=== PATIENT | male | born 1955 | race Caucasian/White ===

== ENCOUNTER 2020-02-01 06:24 | Emergency (ER) | payer MEDICARE, BC ==
--- NOTE | 2020-02-01 07:26 | EDM.PDOC ---
ED HPI GENERAL MEDICAL PROBLEM - General Chief Complaint: Respiratory Problem Stated Complaint: COVID +/SOB/LOW O2 Time Seen by Provider: 02/01/20 07:16 - History of Present Illness INITIAL COMMENTS - FREE TEXT/NARRATIVE: 64-year-old male presents the emergency room with difficulty breathing chest pain and weakness. Patient states this started about 3 weeks ago. With the breathing difficulty and the cough really got worse over this last week he has some chest tightness associated with this. Patient currently is treated for hypertension Parkinson's disease and anxiety/depression. Early on the patient did have some nausea and vomiting. But this seemed to have gotten better. Now he complains mostly of just being weak and gets easily short of breath with any sort of activity. The patient was seen in the walk-in clinic on Saturday he had spots of pneumonia on his lungs and he was started on a Z-Rafa. He is not getting any better. His COVID test at that time did come up positive. The patient is currently taking a beta-juan alberto for his blood pressure 2 Parkinson's pills and Wellbutrin. He does not have a medicine list with him. - Related Data Allergies Allergy/AdvReac Type Severity Reaction Status Date / Time No Known Allergies Allergy Verified 02/01/20 06:34 Home Meds: Home Meds Carbidopa/Levodopa [Carbidopa-Levodopa 25-100 Tab] 1 each PO 6XDAY PRN 02/01/20 [History] Cefuroxime Axetil [Ceftin] 500 mg PO BID #18 tablet 02/01/20 [Rx] Metoprolol Succinate 50 mg PO DAILY 02/01/20 [History] Ondansetron [Ondansetron ODT] 1 tab PO Q6HR PRN 02/01/20 [History] dexAMETHasone [Dexamethasone] 4 mg PO BID #15 tablet 02/01/20 [Rx] traMADol [Ultram] 50 mg PO DAILY 02/01/20 [History] Past Medical History Cardiovascular History: Reports: Hypertension Neurological History: Reports: Parkinson's - Infectious Disease History Infectious Disease History: Reports: Novel Coronavirus Social & Family History - Tobacco Use Smoking Status *Q: Never Smoker ED ROS GENERAL - Review of Systems Review Of Systems: See Below Constitutional: Reports: Fever, Chills, Weakness, Fatigue HEENT: Reports: Rhinitis (Mild) Respiratory: Reports: Shortness of Breath, Pleuritic Chest Pain, Cough. Denies: Sputum Cardiovascular: Reports: Chest Pain, Dyspnea on Exertion. Denies: Lightheadedness, Palpitations Endocrine: Reports: No Symptoms GI/Abdominal: Reports: Nausea, Vomiting. Denies: Abdominal Pain, Constipation, Diarrhea : Reports: No Symptoms Musculoskeletal: Reports: No Symptoms Skin: Reports: No Symptoms Neurological: Reports: No Symptoms Psychiatric: Reports: No Symptoms Hematologic/Lymphatic: Reports: No Symptoms Immunologic: Reports: No Symptoms ED EXAM, GENERAL - Physical Exam Exam: See Below General Appearance: Other (The patient was hypoxic when he came in with an O2 saturation of 79%. He was started on 2 L and came up to the mid 90s and back and down to 1 L and he is still 93%. His pulse is come down into the mid 90s. We will start some fluids and watch this closely. It is unclear to me if the patient took his blood pressure medication but is blood pressure has also been somewhat elevated however it is coming down without intervention. His pulse has come down into the mid 90s) Eye Exam: Bilateral Eye: Normal Inspection Ears: Normal External Exam, Normal Canal, Hearing Grossly Normal, Normal TMs Nose: Normal Inspection, Normal Mucosa, No Blood Throat/Mouth: Normal Inspection, Normal Oropharynx, Normal Voice, No Airway Compromise Head: Atraumatic, Normocephalic Neck: Normal Inspection, Supple, Non-Tender, Full Range of Motion. No: Lymphadenopathy (L), Lymphadenopathy (R) Respiratory/Chest: No Respiratory Distress, Lungs Clear, Normal Breath Sounds Cardiovascular: Regular Rate, Rhythm, No Edema, No Murmur GI/Abdominal: Normal Bowel Sounds, Soft, Non-Tender Back Exam: Normal Inspection. No: CVA Tenderness (L), CVA Tenderness (R) Extremities: Normal Inspection, No Pedal Edema Neurological: Alert, Oriented, Normal Cognition EKG INTERPRETATION EKG Date: 02/01/20 Rhythm: NSR Rate (Beats/Min): 92 [place]: LAD-Left [place] Deviation P-Wave: Present QRS: RBBB ST-T: Normal QT: Prolonged (Borderline) Comparison: No Change EKG Interpretation Comments: Abnormal Course - Vital Signs Last Recorded V/S: Last Vital Signs Temp 36.2 C 02/01/20 06:35 Pulse 88 02/01/20 12:15 Resp 16 02/01/20 12:15 BP 187/94 H 02/01/20 12:15 Pulse Ox 95 02/01/20 12:15 - Orders/Labs/Meds Orders: Active Orders 24 hr Category Date Time Status EKG Documentation Completion [RC] STAT Care 02/01/20 07:40 Active Ang Chest [CT] Stat Exams 02/01/20 09:01 Taken Chest 1V Frontal [CR] Stat Exams 02/01/20 07:42 Taken CULTURE BLOOD [BC] Stat Lab 02/01/20 08:14 Received CULTURE BLOOD [BC] Stat Lab 02/01/20 08:25 Received Metoprolol Succinate [Toprol XL] Med 02/01/20 09:00 Active 50 mg PO DAILY Sodium Chloride 0.9% [Normal Saline] 1,000 ml Med 02/01/20 08:00 Active IV ASDIRECTED Sodium Chloride 0.9% [Normal Saline] 100 ml Med 02/01/20 09:15 Active IV ASDIRECTED Sodium Chloride 0.9% [Saline Flush] Med 02/01/20 09:04 Active 10 ml FLUSH ONETIME PRN Blood Culture x2 Reflex Set [OM.PC] Stat Oth 02/01/20 07:42 Ordered Medication Orders Sodium Chloride (Normal Saline) 1,000 mls @ 125 mls/hr IV ASDIRECTED [facility] Last Admin: 02/01/20 08:50 Dose: 125 mls/hr Documented by: EBERELI Sodium Chloride (Normal Saline) 100 mls @ 75 mls/hr IV ASDIRECTED [facility] Last Admin: 02/01/20 09:32 Dose: 75 mls/hr Documented by: BURTON Metoprolol Succinate (Toprol Xl) 50 mg PO DAILY [facility] Last Admin: 02/01/20 08:54 Dose: 50 mg Documented by: EBERELI Sodium Chloride (Saline Flush) 10 ml FLUSH ONETIME PRN PRN Reason: IV FLUSH Last Admin: 02/01/20 09:32 Dose: 10 ml Documented by: BURTON Labs: Laboratory Tests 02/01/20 02/01/20 02/01/20 Range/Units 08:14 08:14 08:14 WBC 11.24 H (4.23-9.07) K/mm3 RBC 4.09 L (4.63-6.08) M/mm3 Hgb 12.1 L (13.7-17.5) gm/dl Hct 39.1 L (40.1-51.0) % MCV 95.6 H (79.0-92.2) fl MCH 29.6 (25.7-32.2) pg MCHC 30.9 L (32.2-35.5) g/dl RDW Std Deviation 46.6 H (35.1-43.9) fL Plt Count 610 H (163-337) K/mm3 MPV 9.0 L (9.4-12.3) fl Neutrophils % (Manual) 85 H (40-60) % Band Neutrophils % 0 (0-10) % Lymphocytes % (Manual) 7 L (20-40) % Atypical Lymphs % 0 % Monocytes % (Manual) 8 (2-10) % Eosinophils % (Manual) 0 L (0.8-7.0) % Basophils % (Manual) 0 L (0.2-1.2) Platelet Estimate Adequate Poikilocytosis 1+ slight Anisocytosis 1+ slight RBC Morph Comment Abnormal PT 11.1 (9.7-11.7) SECONDS INR 1.04 APTT 35 H (22-31) SECONDS D-Dimer, Quantitative (0.19-0.50) mg/L Sodium 138 (136-145) mEq/L Potassium 4.4 (3.5-5.1) mEq/L Chloride 103 (98-107) mEq/L Carbon Dioxide 24 (21-32) mEq/L Anion Gap 15.4 H (5-15) BUN 19 H (7-18) mg/dL Creatinine 0.7 (0.7-1.3) mg/dL Est Cr Clr Drug Dosing 98.36 mL/min Estimated GFR (MDRD) > 60 (>60) mL/min BUN/Creatinine Ratio 27.1 H (14-18) Glucose 94 (80-115) mg/dL Lactic Acid (0.4-2.0) mmol/L Calcium 8.6 (8.5-10.1) mg/dL Ferritin (26-388) ng/ml Total Bilirubin 0.9 (0.2-1.0) mg/dL AST 30 (15-37) U/L ALT 10 L (16-63) U/L Alkaline Phosphatase 112 (46-116) U/L Lactate Dehydrogenase 322 H (85-227) U/L Troponin I < 0.017 (0.00-0.056) ng/mL C-Reactive Protein 36.4 H* (<1.0) mg/dL Total Protein 7.0 (6.4-8.2) g/dl Albumin 2.1 L (3.4-5.0) g/dl Globulin 4.9 gm/dL Albumin/Globulin Ratio 0.4 L (1-2) 02/01/20 02/01/20 02/01/20 Range/Units 08:14 08:14 08:14 WBC (4.23-9.07) K/mm3 RBC (4.63-6.08) M/mm3 Hgb (13.7-17.5) gm/dl Hct (40.1-51.0) % MCV (79.0-92.2) fl MCH (25.7-32.2) pg MCHC (32.2-35.5) g/dl RDW Std Deviation (35.1-43.9) fL Plt Count (163-337) K/mm3 MPV (9.4-12.3) fl Neutrophils % (Manual) (40-60) % Band Neutrophils % (0-10) % Lymphocytes % (Manual) (20-40) % Atypical Lymphs % % Monocytes % (Manual) (2-10) % Eosinophils % (Manual) (0.8-7.0) % Basophils % (Manual) (0.2-1.2) Platelet Estimate Poikilocytosis Anisocytosis RBC Morph Comment PT (9.7-11.7) SECONDS INR APTT (22-31) SECONDS D-Dimer, Quantitative 3.92 H (0.19-0.50) mg/L Sodium (136-145) mEq/L Potassium (3.5-5.1) mEq/L Chloride (98-107) mEq/L Carbon Dioxide (21-32) mEq/L Anion Gap (5-15) BUN (7-18) mg/dL Creatinine (0.7-1.3) mg/dL Est Cr Clr Drug Dosing mL/min Estimated GFR (MDRD) (>60) mL/min BUN/Creatinine Ratio (14-18) Glucose (80-115) mg/dL Lactic Acid 1.0 (0.4-2.0) mmol/L Calcium (8.5-10.1) mg/dL Ferritin 498 H (26-388) ng/ml Total Bilirubin (0.2-1.0) mg/dL AST (15-37) U/L ALT (16-63) U/L Alkaline Phosphatase (46-116) U/L Lactate Dehydrogenase (85-227) U/L Troponin I (0.00-0.056) ng/mL C-Reactive Protein (<1.0) mg/dL Total Protein (6.4-8.2) g/dl Albumin (3.4-5.0) g/dl Globulin gm/dL Albumin/Globulin Ratio (1-2) Meds: Medications Generic Name Dose Route Start Last Admin Trade Name Freq PRN Reason Stop Dose Admin Sodium Chloride 1,000 mls @ 125 mls/hr 02/01/20 08:00 02/01/20 08:50 Normal Saline IV 125 mls/hr ASDIRECTED LUCA Administration Sodium Chloride 100 mls @ 75 mls/hr 02/01/20 09:15 02/01/20 09:32 Normal Saline IV 75 mls/hr ASDIRECTED LUCA Administration Metoprolol Succinate 50 mg 02/01/20 09:00 02/01/20 08:54 Toprol Xl PO 50 mg DAILY LUCA Administration Sodium Chloride 10 ml 02/01/20 09:04 02/01/20 09:32 Saline Flush FLUSH 10 ml ONETIME PRN Administration IV FLUSH Discontinued Medications Generic Name Dose Route Start Last Admin Trade Name Shadyq PRN Reason Stop Dose Admin Dexamethasone 4 mg 02/01/20 07:47 02/01/20 08:02 Dexamethasone PO 02/01/20 07:48 4 mg ONETIME ONE Administration Sodium Chloride 500 mls @ 999 mls/hr 02/01/20 07:49 02/01/20 08:17 Normal Saline IV 02/01/20 08:19 999 mls/hr .BOLUS ONE Administration Ceftriaxone Sodium 2 gm/ 100 mls @ 200 mls/hr 02/01/20 11:44 02/01/20 11:54 Sodium Chloride IV 02/01/20 12:13 200 mls/hr ONETIME ONE Administration Iopamidol 100 ml 02/01/20 09:04 02/01/20 09:32 Isovue-370 (76%) IVPUSH 02/01/20 09:05 100 ml ONETIME ONE Administration - Re-Assessments/Exams Free Text/Narrative Re-Assessment/Exam: 02/01/20 08:15 He is COVID positive, has been started on antibiotics for presumed pneumonia. We will check labs and other chest x-ray and start gentle fluids with him being COVID positive. Try and verify the medications that he is taking. 02/01/20 08:50 Chest x-ray shows peripheral patchy infiltrates worse on the left compared to the right 02/01/20 09:02 D-dimer is quite elevated. Chemistry is not resulted but over the phone lab informed us his creatinine was 0.73 I will order a CTA 02/01/20 12:12 CT is unrevealing for PE. However he is got patchy and dense groundglass air space consolidation consistent with COVID-19 pneumonia and other viral pneumonias as well as an organizing pneumonia. Also of note is a prominent caliber of the main pulmonary artery possibly suggestive of pulmonary artery hypertension. [facility] has no beds available seen as has no beds available patient does not want to go further than this and really does not want to leave town. He requests to be to go home on supplemental oxygen. This will be set up. I discussed this with the patient however I am concerned about his overall situation with his underlying medical problems. But we can attempt this I will start him on oral antibiotics after he receives 2 g of Rocephin here in the emergency department he will get Ceftin 500 twice daily. He will take dexamethasone 4 mg twice daily this was started in the emergency department and he will use the home O2. I did discuss this with the patient's and she is in agreement and will keep an close eye on the patient both the patient and his should follow social isolation precautions for the next 2 weeks. Departure - Departure Time of Disposition: 11:45 Disposition: Home, Self-Care 01 Clinical Impression: Pneumonia due to COVID-19 virus - Discharge Information Prescriptions: Cefuroxime Axetil [Ceftin] 500 mg PO BID #18 tablet dexAMETHasone [Dexamethasone] 4 mg PO BID #15 tablet Instructions: Prevent the Spread of COVID-19 if You Are Sick - [facility] Referrals: Rajesh Douglas MD [Primary Care Provider] - Forms: ED Department Discharge Additional Instructions: Return to the emergency room with any questions problems or worsening symptoms. Return if you are feeling a lot worse, your O2 saturation levels drop. Or any symptoms that are causing you problems. If you can obtain a O2 monitor, do so, it makes this so much easier. Because of the duration of his illness he is also started on some antibiotics in case he has a bacterial component with this. After he has been better for a month or 2 follow-up with his regular healthcare provider and have a repeat CBC done to check his platelet count as it was elevated here in the department. Also continue sitter a cardiac echo as the pulmonary artery was a little more prominent than one would expect this may be nothing but it also may be a sign of underlying pulmonary hypertension. You have been discharged on 2 medications the first medication is dexamethasone, this is a steroid, take 1 tonight and then twice daily thereafter until they are all gone. The second medication is cefuroxime axetil starting tomorrow morning take 1 twice daily. You received a large IV dose of the similar medication here in the emergency room. Sepsis Event Note (ED) - Evaluation Sepsis Screening Result: Possible Sepsis Risk - Focused Exam Vital Signs: Vital Signs Temp Pulse Pulse Resp BP BP Pulse Ox 02/01/20 12:15 88 16 187/94 H 95 02/01/20 11:30 83 16 183/88 H 95 02/01/20 10:50 82 96 02/01/20 10:00 80 173/95 H 97 02/01/20 09:37 90 20 183/91 H 98 02/01/20 08:54 88 182/91 H 02/01/20 08:00 95 18 166/85 H 93 L 02/01/20 07:38 94 160/106 H 95 02/01/20 06:35 36.2 C 108 H 29 H 183/83 H 79 L - My Orders Last 24 Hours: My Active Orders 02/01/20 07:40 EKG Documentation Completion [RC] STAT 02/01/20 07:42 Chest 1V Frontal [CR] Stat Blood Culture x2 Reflex Set [OM.PC] Stat 02/01/20 08:00 Sodium Chloride 0.9% [Normal Saline] 1,000 ml IV ASDIRECTED 02/01/20 08:14 CULTURE BLOOD [BC] Stat 02/01/20 08:25 CULTURE BLOOD [BC] Stat 02/01/20 09:00 Metoprolol Succinate [Toprol XL] 50 mg PO DAILY 02/01/20 09:01 Ang Chest [CT] Stat 02/01/20 09:04 Sodium Chloride 0.9% [Saline Flush] 10 ml FLUSH ONETIME PRN 02/01/20 09:15 Sodium Chloride 0.9% [Normal Saline] 100 ml IV ASDIRECTED - Assessment/Plan Last 24 Hours: My Active Orders 02/01/20 07:40 EKG Documentation Completion [RC] STAT 02/01/20 07:42 Chest 1V Frontal [CR] Stat Blood Culture x2 Reflex Set [OM.PC] Stat 02/01/20 08:00 Sodium Chloride 0.9% [Normal Saline] 1,000 ml IV ASDIRECTED 02/01/20 08:14 CULTURE BLOOD [BC] Stat 02/01/20 08:25 CULTURE BLOOD [BC] Stat 02/01/20 09:00 Metoprolol Succinate [Toprol XL] 50 mg PO DAILY 02/01/20 09:01 Ang Chest [CT] Stat 02/01/20 09:04 Sodium Chloride 0.9% [Saline Flush] 10 ml FLUSH ONETIME PRN 02/01/20 09:15 Sodium Chloride 0.9% [Normal Saline] 100 ml IV ASDIRECTED
[2020-02-01] MEDS ORDERED: Dexamethasone 4 MG Tab PO ONE (07:47)
[2020-02-01] MEDS ORDERED: Sodium Chloride 0.9% 500 ML IV ONE (07:49)
[2020-02-01] MEDS ORDERED: Sodium Chloride 0.9% 1,000 ML IV SCH (08:00)
[2020-02-01] MEDS ORDERED: Metoprolol Succinate 50 MG Tab.ER PO SCH (09:00)
[2020-02-01] MEDS ORDERED: Iopamidol 755 Mg/ML 100 ML Bottle IVPUSH ONE (09:04)
[2020-02-01] MEDS ORDERED: Sodium Chloride 0.9% 10 ML Syringe FLUSH PRN (09:04)
[2020-02-01] MEDS ORDERED: Sodium Chloride 0.9% 100 ML IV SCH (09:15)
[2020-02-01] MEDS ORDERED: cefTRIAXone 2 GM in Sodium Chloride 0.9% 100 ML IV ONE (11:44)
== END 2020-02-01 13:45 | disposition home or self-care (01) ==
LOC: JD.ED 06:24
DX: U07.1 COVID-19 (principal); J12.89 Other viral pneumonia; I10 Essential (primary) hypertension; Z79.899 Other long term (current) drug therapy; G20 Parkinson's disease
CPT/HCPCS: 36415; 71045; 71275; 80053; 82728; 83605; 83615; 84484; 85007; 85027; 85379; 85610; 85730; 86140; 87040; 93005; 96365; 99285; A9270; J0696; J7030; J7050; J8540; Q9967

== ENCOUNTER 2020-02-03 04:38 | Emergency (ER) | payer MEDICARE, BC ==
[2020-02-03] MEDS ORDERED: Dexamethasone 4 MG/ML 5 ML MDV IV STA (05:11)
--- NOTE | 2020-02-03 05:22 | EDM.PDOC ---
ED HPI GENERAL MEDICAL PROBLEM - General Chief Complaint: Respiratory Problem Stated Complaint: covid low oxygen Time Seen by Provider: 02/03/20 04:49 Source of Information: Reports: Patient History Limitations: Reports: No Limitations - History of Present Illness INITIAL COMMENTS - FREE TEXT/NARRATIVE: Mr. Qureshi is a very pleasant 64-year-old gentleman who developed dyspnea on exertion, chest tightness, weakness, and nausea/vomiting on or about 01/11/2020. He was seen at the walk-in clinic on 01/27/2020 where chest x-ray suggested pneumonia, therefore he was prescribed a Z-Rafa, however, a swab for the SARS-CoV-2 virus subsequently returned positive. His symptoms did not improve with the Z-Rafa. The patient was then seen in this ED 2 days ago, on 02/01/2020, complaining of dyspnea, chest pain, and weakness. He stated that his breathing difficulty and cough had gotten worse over the past week. The nausea and vomiting had resolved. His initial BP was found to be elevated at 187/94, with an oxygen saturation of 79% on room air, up to 94% on 2 L per nasal cannula. His physical exam, including that of his lungs, was unremarkable. Work-up i ncluded bloodwork, 2 sets of blood cultures, a portable chest x-ray, a CT angiogram of the chest, and an ECG. His work-up was remarkable for WBC count elevated at 11.24, platelets of 610,000, and LDH of 322, a CRP of 36.4, a ferritin of 498, and a D-dimer of 3.92. The remainder of his blood work was unremarkable. All 4 of his blood cultures are currently negative for growth. His portable chest x-ray demonstrated bilateral patchy infiltrates, worse on the left than the right, while the CT angiogram of his chest was negative for PE, but demonstrated patchy and dense groundglass airspace consolidation consistent with COVID-19 pneumonia. Of note was a prominent caliber of the main pulmonary artery possibly suggestive of pulmonary artery hypertension. The patient was given some IV fluid, 2 g of IV Rocephin, and 4 mg of oral dexamethasone. Admission to the hospital was recommended, however, there were no beds available at this facility or either of the [place] facilities, and the patient did not want to travel beyond [place], therefore arrangements were made for the patient to go home with prescriptions for dexamethasone 4 mg po BID, Ceftin 500 mg po BID, and home oxygen. The patient now returns the ED with a complaint of hypoxemia. He states that he has a home pulse oximeter, which has been rapidly declining despite him increasing his home oxygen quantity. He is up to 4 L per NC. He reports having no dyspnea at rest, but having dyspnea with even minimal exertion, along with a nonproductive cough. No recent fever. No recent nausea, vomiting, constipation, diarrhea, or urinary symptoms. He denies having a headache, chest pain, or palpitations. Here in the ED, the patient's initial BP is found to be elevated at 173/80, with a HR normal at 81 bpm, tachypnea of 34 rpm, afebrile at 36.1 degrees, and hypoxemia of 78% on 4 L of oxygen per nasal cannula, up to 83% on 6 L of oxygen per nasal cannula. We have since switched him to a Ventimask, with an oxygen saturation of 86%. The patient's PCP is Dr. Rajesh Douglas. - Related Data Allergies Allergy/AdvReac Type Severity Reaction Status Date / Time No Known Allergies Allergy Verified 02/03/20 04:43 Home Meds: Home Meds Carbidopa/Levodopa [Carbidopa-Levodopa 25-100 Tab] 1 each PO 6XDAY PRN 02/01/20 [History] Cefuroxime Axetil [Ceftin] 500 mg PO BID #18 tablet 02/01/20 [Rx] Metoprolol Succinate 50 mg PO DAILY 02/01/20 [History] Ondansetron [Ondansetron ODT] 1 tab PO Q6HR PRN 02/01/20 [History] dexAMETHasone [Dexamethasone] 4 mg PO BID #15 tablet 02/01/20 [Rx] traMADol [Ultram] 50 mg PO DAILY 02/01/20 [History] Past Medical History Cardiovascular History: Reports: Hypertension Neurological History: Reports: Parkinson's Psychiatric History: Reports: Anxiety, Depression - Infectious Disease History Infectious Disease History: Reports: Novel Coronavirus (dx'd 01/27/2020) - Past Surgical History HEENT Surgical History: Reports: Oral Surgery (dental extractions) GI Surgical History: Reports: Other (See Below) (Fistulotomy) Social & Family History - Tobacco Use Tobacco Use Status *Q: Former Tobacco User Years of Tobacco use: 10 Packs/Tins Daily: 1 Month/Year Tobacco Last Used: Quit 1984 - Alcohol Use Alcohol Use History: Yes Alcohol Use Frequency: Socially - Recreational Drug Use Recreational Drug Use: No - Living Situation & Occupation Living situation: Reports: , with Spouse Occupation: Employed ([employer]) ED ROS GENERAL - Review of Systems Review Of Systems: Comprehensive ROS is negative, except as noted in HPI. ED EXAM, GENERAL - Physical Exam Exam: See Below Exam Limited By: No Limitations General Appearance: Alert, WD/WN, Mild Distress (appears fatigued) Eye Exam: Bilateral Eye: EOMI, Normal Inspection Ears: Normal External Exam, Hearing Grossly Normal Nose: Normal Inspection Throat/Mouth: Normal Inspection, Normal Lips, Normal Voice, No Airway Compromise Head: Atraumatic, Normocephalic Neck: Normal Inspection, Full Range of Motion Respiratory/Chest: Lungs Clear, Normal Breath Sounds, No Accessory Muscle Use. No: Decreased Breath Sounds, Crackles, Rhonchi, Wheezing, Stridor, Accessory Muscle Use, Prolonged Expiration Cardiovascular: Normal Peripheral Pulses, Regular Rate, Rhythm, No Edema, No G allop, No JVD, No Murmur, No Rub Peripheral Pulses: 3+: Radial (L), Radial (R) GI/Abdominal: Normal Bowel Sounds, Soft, Non-Tender, No Organomegaly, No Distention, No Abnormal Bruit, No Mass Back Exam: Normal Inspection, Full Range of Motion, NT Extremities: Normal Inspection, Normal Range of Motion, No Pedal Edema, Normal Capillary Refill Neurological: Alert, Oriented, Normal Cognition, No Motor/Sensory Deficits Psychiatric: Normal Affect Skin Exam: Warm, Dry, Intact, Normal Color, No Rash #1 Interpretation EKG Date: 02/03/20 Time: 05:42 Rhythm: NSR Rate (Beats/Min): 83 [place]: Normal P-Wave: Present QRS: RBBB (Early transition. LVH.) ST-T: Normal QT: Normal Comparison: No Change (02/01/2020) Course - Vital Signs Last Recorded V/S: Last Vital Signs Temp 36.7 C 02/03/20 06:43 Pulse 77 02/03/20 06:50 Resp 28 H 02/03/20 06:50 BP 159/80 H 02/03/20 06:50 Pulse Ox 85 L 02/03/20 06:50 - Orders/Labs/Meds Orders: Active Orders 24 hr Category Date Time Status EKG Documentation Completion [RC] STAT Care 02/03/20 05:13 Active Nurse Communication: Isolation [RC] ASDIRECTED Care 02/03/20 05:54 Active Chest 1V Frontal [CR] Stat Exams 02/03/20 05:13 Once ABO/RH TYPE [BBK] Stat Lab 02/03/20 04:48 Results CULTURE BLOOD [BC] Stat Lab 02/03/20 05:40 Received CULTURE BLOOD [BC] Stat Lab 02/03/20 05:47 Received FRESH FROZEN PLASMA [BBK] Stat Lab 02/03/20 04:48 Results REFLEX LACTIC ACID YES OR NO [CHEM] Routine Lab 02/03/20 05:45 Received Blood Culture x2 Reflex Set [OM.PC] Stat Oth 02/03/20 05:13 Ordered Isolation [COMM] Routine Oth 02/03/20 05:13 Ordered Isolation [COMM] Routine Oth 02/03/20 05:53 Ordered Transfuse Fresh Frozen Plasma [COMM] Stat Oth 02/03/20 05:22 Ordered Transfuse Fresh Frozen Plasma [COMM] Stat Oth 02/03/20 05:22 Ordered Labs: Laboratory Tests 02/03/20 02/03/20 02/03/20 Range/Units 04:48 04:48 04:48 WBC 17.08 H (4.23-9.07) K/mm3 RBC 4.29 L (4.63-6.08) M/mm3 Hgb 13.4 L (13.7-17.5) gm/dl Hct 41.1 (40.1-51.0) % MCV 95.8 H (79.0-92.2) fl MCH 31.2 (25.7-32.2) pg MCHC 32.6 (32.2-35.5) g/dl RDW Std Deviation 47.2 H (35.1-43.9) fL Plt Count 674 H (163-337) K/mm3 MPV 9.4 (9.4-12.3) fl Neutrophils % (Manual) 87 H (40-60) % Band Neutrophils % 2 (0-10) % Lymphocytes % (Manual) 8 L (20-40) % Atypical Lymphs % 0 % Monocytes % (Manual) 3 (2-10) % Eosinophils % (Manual) 0 L (0.8-7.0) % Basophils % (Manual) 0 L (0.2-1.2) Platelet Estimate Marked inc Plt Morphology Comment Normal RBC Morph Comment Normal PT 11.1 (9.7-11.7) SECONDS INR 1.04 APTT 30 (22-31) SECONDS D-Dimer, Quantitative 6.34 H (0.19-0.50) mg/L Puncture Site ABG pH (7.35-7.45) ABG pCO2 (35.0-45.0) mmHg ABG pO2 (80.0-100.0) mmHg ABG HCO3 (22.0-26.0) meq/L ABG O2 Saturation (96.0-97.0) % ABG Base Excess (-2-2.0) Dean Test O2 Delivery Device Oxygen Flow Rate Sodium (136-145) mEq/L Potassium (3.5-5.1) mEq/L Chloride (98-107) mEq/L Carbon Dioxide (21-32) mEq/L Anion Gap (5-15) BUN (7-18) mg/dL Creatinine (0.7-1.3) mg/dL Est Cr Clr Drug Dosing mL/min Estimated GFR (MDRD) (>60) mL/min BUN/Creatinine Ratio (14-18) Glucose (80-115) mg/dL Lactic Acid (0.4-2.0) mmol/L Calcium (8.5-10.1) mg/dL Magnesium (1.8-2.4) mg/dl Ferritin (26-388) ng/ml Total Bilirubin (0.2-1.0) mg/dL AST (15-37) U/L ALT (16-63) U/L Alkaline Phosphatase (46-116) U/L Lactate Dehydrogenase (85-227) U/L Creatine Kinase (39-308) U/L Troponin I (0.00-0.056) ng/mL C-Reactive Protein 20.4 H* (<1.0) mg/dL NT-Pro-B Natriuret Pep (0-125) pg/mL Total Protein (6.4-8.2) g/dl Albumin (3.4-5.0) g/dl Globulin gm/dL Albumin/Globulin Ratio (1-2) Blood Type 02/03/20 02/03/20 02/03/20 Range/Units 04:48 04:48 04:48 WBC (4.23-9.07) K/mm3 RBC (4.63-6.08) M/mm3 Hgb (13.7-17.5) gm/dl Hct (40.1-51.0) % MCV (79.0-92.2) fl MCH (25.7-32.2) pg MCHC (32.2-35.5) g/dl RDW Std Deviation (35.1-43.9) fL Plt Count (163-337) K/mm3 MPV (9.4-12.3) fl Neutrophils % (Manual) (40-60) % Band Neutrophils % (0-10) % Lymphocytes % (Manual) (20-40) % Atypical Lymphs % % Monocytes % (Manual) (2-10) % Eosinophils % (Manual) (0.8-7.0) % Basophils % (Manual) (0.2-1.2) Platelet Estimate Plt Morphology Comment RBC Morph Comment PT (9.7-11.7) SECONDS INR APTT (22-31) SECONDS D-Dimer, Quantitative (0.19-0.50) mg/L Puncture Site ABG pH (7.35-7.45) ABG pCO2 (35.0-45.0) mmHg ABG pO2 (80.0-100.0) mmHg ABG HCO3 (22.0-26.0) meq/L ABG O2 Saturation (96.0-97.0) % ABG Base Excess (-2-2.0) Dean Test O2 Delivery Device Oxygen Flow Rate Sodium 140 (136-145) mEq/L Potassium 4.0 (3.5-5.1) mEq/L Chloride 103 (98-107) mEq/L Carbon Dioxide 22 (21-32) mEq/L Anion Gap 19.0 H (5-15) BUN 25 H (7-18) mg/dL Creatinine 1.0 (0.7-1.3) mg/dL Est Cr Clr Drug Dosing 68.85 mL/min Estimated GFR (MDRD) > 60 (>60) mL/min BUN/Creatinine Ratio 25.0 H (14-18) Glucose 106 (80-115) mg/dL Lactic Acid (0.4-2.0) mmol/L Calcium 8.5 (8.5-10.1) mg/dL Magnesium 2.1 (1.8-2.4) mg/dl Ferritin 634 H (26-388) ng/ml Total Bilirubin 0.7 (0.2-1.0) mg/dL AST 30 (15-37) U/L ALT 11 L (16-63) U/L Alkaline Phosphatase 111 (46-116) U/L Lactate Dehydrogenase 383 H (85-227) U/L Creatine Kinase 80 (39-308) U/L Troponin I 0.020 (0.00-0.056) ng/mL C-Reactive Protein (<1.0) mg/dL NT-Pro-B Natriuret Pep 1127 H (0-125) pg/mL Total Protein 7.2 (6.4-8.2) g/dl Albumin 2.3 L (3.4-5.0) g/dl Globulin 4.9 gm/dL Albumin/Globulin Ratio 0.5 L (1-2) Blood Type 02/03/20 02/03/20 02/03/20 Range/Units 04:48 04:48 05:25 WBC (4.23-9.07) K/mm3 RBC (4.63-6.08) M/mm3 Hgb (13.7-17.5) gm/dl Hct (40.1-51.0) % MCV (79.0-92.2) fl MCH (25.7-32.2) pg MCHC (32.2-35.5) g/dl RDW Std Deviation (35.1-43.9) fL Plt Count (163-337) K/mm3 MPV (9.4-12.3) fl Neutrophils % (Manual) (40-60) % Band Neutrophils % (0-10) % Lymphocytes % (Manual) (20-40) % Atypical Lymphs % % Monocytes % (Manual) (2-10) % Eosinophils % (Manual) (0.8-7.0) % Basophils % (Manual) (0.2-1.2) Platelet Estimate Plt Morphology Comment RBC Morph Comment PT (9.7-11.7) SECONDS INR APTT (22-31) SECONDS D-Dimer, Quantitative (0.19-0.50) mg/L Puncture Site Rt radial ABG pH 7.45 (7.35-7.45) ABG pCO2 30.9 L (35.0-45.0) mmHg ABG pO2 54.0 L (80.0-100.0) mmHg ABG HCO3 21.3 L (22.0-26.0) meq/L ABG O2 Saturation 85.8 L (96.0-97.0) % ABG Base Excess -1.4 (-2-2.0) Dean Test Positive O2 Delivery Device Venturi Oxygen Flow Rate 15.0 Sodium (136-145) mEq/L Potassium (3.5-5.1) mEq/L Chloride (98-107) mEq/L Carbon Dioxide (21-32) mEq/L Anion Gap (5-15) BUN (7-18) mg/dL Creatinine (0.7-1.3) mg/dL Est Cr Clr Drug Dosing mL/min Estimated GFR (MDRD) (>60) mL/min BUN/Creatinine Ratio (14-18) Glucose (80-115) mg/dL Lactic Acid 2.3 H* (0.4-2.0) mmol/L Calcium (8.5-10.1) mg/dL Magnesium (1.8-2.4) mg/dl Ferritin (26-388) ng/ml Total Bilirubin (0.2-1.0) mg/dL AST (15-37) U/L ALT (16-63) U/L Alkaline Phosphatase (46-116) U/L Lactate Dehydrogenase (85-227) U/L Creatine Kinase (39-308) U/L Troponin I (0.00-0.056) ng/mL C-Reactive Protein (<1.0) mg/dL NT-Pro-B Natriuret Pep (0-125) pg/mL Total Protein (6.4-8.2) g/dl Albumin (3.4-5.0) g/dl Globulin gm/dL Albumin/Globulin Ratio (1-2) Blood Type B POSITIVE Meds: Medications Discontinued Medications Generic Name Dose Route Start Last Admin Trade Name Freq PRN Reason Stop Dose Admin Dexamethasone 6 mg 02/03/20 05:11 02/03/20 05:33 Dexamethasone IV 02/03/20 05:12 6 mg ONETIME STA Administration Remdesivir 200 mg/ Sodium 250 mls @ 250 mls/hr 02/03/20 05:12 02/03/20 05:34 Chloride IV 02/03/20 05:13 250 mls/hr ONETIME ONE Administration - Re-Assessments/Exams Free Text/Narrative Re-Assessment/Exam: 02/03/20 05:15 As above, the patient developed dyspnea on exertion on or about 01/11/2020, worse for the past week or so, along with chest tightness, and, initially, some nausea and vomiting, which subsequently resolved. He tested positive for COVID- 19 on 01/27/2020, and was then seen in this ED 2 days ago, on 02/01/2020. At that time, his oxygen saturation was 79% on room air, up to the mid 90s on 2 L of oxygen per nasal cannula. Because there were no beds available at this facility or in [place], the patient elected to go home as opposed to being transferred further. He was discharged with prescriptions for dexamethasone 4 mg po BID and Ceftin 500 mg po BID, which he has been taking as prescribed (he has not taken his AM dose this morning). Now returns to the ED with a report of steadily decreasing oxygen saturations on his home pulse oximeter, despite increasing his FiO2. His oxygen saturation here is 70% on 4 L, 83% on 6 L of oxygen per nasal cannula. No dyspnea if he remains perfectly still, but significant dyspnea with even minimal exertion. He has had a nonproductive cough, but no fever. No other symptoms. On examination, the patient appears to be fatigued, but is otherwise unremarkable, including that of his lungs, which are clear to auscultation bilaterally. I have ordered a work-up that includes blood work, 2 sets of blood cultures, an ABG, and influenza swab, a portable chest x-ray, and an ECG, however, these labs are for finding only, as the diagnosis and it severity is already clear. The patient will be given 6 mg of IV dexamethasone and 200 mg of IV remdesivir. I have also spoken to the lab to request 2 units of convalescent plasma; availability will depend on the patient's blood type. As we have no beds available at this facility, the patient will need to be transferred. He is aware of that and is agreeable. 02/03/20 05:53 Case discussed with Beckie at [facility] at 05:30. Case then discussed with Dr. Jacobs, Paper Slitter at [facility], at 05:43. He felt that the patient may be suitable for admission to the medical floor. Case then discussed with Dr. Sapp, Hospitalist at [facility], at 05:50. He accepted the patient for admission to their intermediate unit. The patient will be transported by helicopter, that will be arranged for by [facility]. 02/03/20 05:54 Notified by lab that we only have 1 unit of convalescent plasma. 02/03/20 05:58 The portable chest x-ray and CTA images from 02/01/2020 have been pushed to [facility]. 02/03/20 06:10 We are notified that the helicopter will arrive around 06:50. 02/03/20 06:23 The patient's CBC is remarkable for WBC count elevated at 17.08, but with only 2% bandemia. His Hgb is slightly depressed at 13.4, with a Hct within normal limits at 41.1. His platelets are elevated at 674,000, with the remainder of his CBC being unremarkable. His CMP is remarkable for an anion gap elevated at 19.0, but with a bicarbonate normal at 22. His BUN is elevated 25, with a Cr normal at 1.0, and the remainder of his CMP being unremarkable. His magnesium level is within normal limits at 2.1. His lactic acid level is mildly elevated at 2.3. His troponin is within normal limits at 0.020. His CPK is within normal limits at 80. His BNP is elevated at 1127. His D-dimer is elevated at 6.34. His coags are within normal limits. His LDH is elevated at 383. His ferritin is elevated at 634. His CRP is elevated at 20.4. His ABG represents a combined chronic respiratory alkalosis and metabolic alkalosis. The patient's influenza swab has not yet resulted. His portable chest x-ray has not yet been obtained. 02/03/20 06:32 The patient's influenza swab has returned negative. 02/03/20 06:55 Portable chest radiograph reviewed. The cardiac silhouette is within normal limits. No pleural effusions seen on this AP view. There are bilateral hazy infiltrates, much worse on the left than the right, although pulmonary vascular congestion cannot be ruled out. No pneumothorax. Formal read per the Radiologist pending. I will push the portable chest x-ray image to [facility]. 02/03/20 07:08 The helicopter has arrived. Departure - Departure Time of Disposition: 06:00 Disposition: DC/Tfer to [facility] Condition: Serious Clinical Impression: Pneumonia due to COVID-19 virus - Discharge Information *PRESCRIPTION DRUG MONITORING PROGRAM REVIEWED*: Not Applicable *COPY OF PRESCRIPTION DRUG MONITORING REPORT IN PATIENT OLEG: Not Applicable Referrals: Rajesh Douglas MD [Primary Care Provider] - Forms: ED Department Discharge Sepsis Event Note (ED) - Evaluation Sepsis Screening Result: No Definite Risk - Focused Exam Vital Signs: Vital Signs Temp Temp Pulse Resp BP Pulse Ox Pulse Ox 02/03/20 06:50 77 28 H 159/80 H 85 L 02/03/20 06:43 36.7 C 80 30 H 158/71 H 02/03/20 05:57 80 30 H 145/79 H 88 L 02/03/20 05:52 87 L 02/03/20 04:56 83 L 02/03/20 04:44 36.1 C 81 34 H 173/80 H 78 L - My Orders Last 24 Hours: My Active Orders 02/03/20 04:48 ABO/RH TYPE [BBK] Stat FRESH FROZEN PLASMA [BBK] Stat 02/03/20 05:13 EKG Documentation Completion [RC] STAT Chest 1V Frontal [CR] Stat Blood Culture x2 Reflex Set [OM.PC] Stat Isolation [COMM] Routine 02/03/20 05:22 Transfuse Fresh Frozen Plasma [COMM] Stat Transfuse Fresh Frozen Plasma [COMM] Stat 02/03/20 05:40 CULTURE BLOOD [BC] Stat 02/03/20 05:45 REFLEX LACTIC ACID YES OR NO [CHEM] Routine 02/03/20 05:47 CULTURE BLOOD [BC] Stat 02/03/20 05:53 Isolation [COMM] Routine 02/03/20 05:54 Nurse Communication: Isolation [RC] ASDIRECTED - Assessment/Plan Last 24 Hours: My Active Orders 02/03/20 04:48 ABO/RH TYPE [BBK] Stat FRESH FROZEN PLASMA [BBK] Stat 02/03/20 05:13 EKG Documentation Completion [RC] STAT Chest 1V Frontal [CR] Stat Blood Culture x2 Reflex Set [OM.PC] Stat Isolation [COMM] Routine 02/03/20 05:22 Transfuse Fresh Frozen Plasma [COMM] Stat Transfuse Fresh Frozen Plasma [COMM] Stat 02/03/20 05:40 CULTURE BLOOD [BC] Stat 02/03/20 05:45 REFLEX LACTIC ACID YES OR NO [CHEM] Routine 02/03/20 05:47 CULTURE BLOOD [BC] Stat 02/03/20 05:53 Isolation [COMM] Routine 02/03/20 05:54 Nurse Communication: Isolation [RC] ASDIRECTED
== END 2020-02-03 07:45 ==
LOC: JD.ED 04:38
DX: U07.1 COVID-19 (principal); J12.89 Other viral pneumonia; I10 Essential (primary) hypertension; G20 Parkinson's disease; Z79.899 Other long term (current) drug therapy
CPT/HCPCS: 36415; 36600; 71045; 80053; 82550; 82728; 82803; 83605; 83615; 83735; 83880; 84484; 85007; 85027; 85379; 85610; 85730; 86140; 87040; 87804; 93005; 96365; 96375; 99285; J1100; J7050; P9017; 93010